=== PATIENT | male | born 1960 | race African-American/Black ===

== ENCOUNTER 2020-04-13 13:15 | Emergency (ER) | payer MEDICARE, OTHER ==
[~2020-04-13] VITALS: Ht 175.3 cm; Wt 72.6 kg
[~2020-04-13 13:15] MED LIST: CELEBREX200 MG ORAL; IBUPROFEN600 MG ORAL; NORCO 5-325 TA1 EACH ORAL; methotrexate
[2020-04-13 13:29] VITALS: BP 124/81
--- NOTE | 2020-04-13 13:29 | NUR ---
ED Nurse Note: Pt from home and walked in due to laceration 1-2cm on his forehead. Pt slipped and fell in a bathroom and hit his forehead on the sink. Pt states wound was bleeding and he came in with a band aid cover. AAO x4, ambulatory with non labored breathing.
[2020-04-13] MEDS ORDERED: Bacitracin Oint UD TOPIC ONE (14:00)
[2020-04-13] MEDS ORDERED: Tetanus/Diptheria/Pertussis IM ONE (14:00)
--- NOTE | 2020-04-13 14:10 | Emergency Room Report ---
History of Present Illness General Chief Complaint: Laceration Source: Patient Present Illness HPI 60-year-old male presents to the emergency department complaining of laceration to the forehead which he sustained after slip and fall in the bathroom. Patient reports he slipped on some water that was on the ground. He reports he hit his head. He denies loss of consciousness. He denies midline neck or back pain. He does state that he takes aspirin daily. He denies any other blood thinning medications that he is aware of. He is not sure when his last tetanus vaccine was. He reports he has a slight 2 out of 10 severity headache in the frontal area. He denies visual changes, dizziness, nausea, vomiting, motor weakness or difficulty with speech/swallowing. Allergies: Coded Allergies: NO KNOWN ALLERGIES (Unverified Allergy, Unknown, 07/29/15) COVID-19 Screening Contact w/high risk pt: No Experienced COVID-19 symptoms?: No COVID-19 Testing performed PROCESSOR GRAIN: No Patient History Past Medical History: see triage record Past Surgical History: none Pertinent Family History: none Reviewed Nursing Documentation: PMH: Agreed; PSxH: Agreed Nursing Documentation-PMH Past Medical History: No History, Except For Review of Systems All Other Systems: negative except mentioned in HPI Physical Exam Vital Signs Date Time Temp Pulse Resp B/P (MAP) Pulse Ox O2 Delivery O2 Flow Rate FiO2 04/13/20 13:20 99.1 80 17 124/81 (95) 98 Room Air Sp02 EP Interpretation: reviewed, normal General Appearance: no apparent distress, alert, GCS 15, non-toxic Head: normocephalic, other - 1.5 stellate forehead laceration. Eyes: bilateral eye normal inspection, bilateral eye PERRL, bilateral eye EOMI ENT: hearing grossly normal, normal voice Neck: full range of motion, no bony tend Respiratory: lungs clear, normal breath sounds, speaking full sentences Cardiovascular #1: regular rate, rhythm Gastrointestinal: non tender, soft, other - Negative bruises. Rectal: deferred Genitourinary: normal inspection Musculoskeletal: back normal, normal range of motion, gait/station normal, non- tender Neurologic: alert, motor strength/tone normal, oriented x3, sensory intact, responsive, speech normal, normal gait, grossly normal, no focal defects Psychiatric: judgement/insight normal Skin: laceration - 1.5 stellate forehead laceration Procedures Laceration/Wound Repair Laceration/Wound Repair : Consent: Verbal Wound Location: head Wound's Depth, Shape: irregular Wound Length (cm): 1 Wound Explored: clean Irrigated w/ Saline (ccs): 500 Anesthesia: Lidocaine w/ Epi Volume Anesthetic (ccs): 3 Wound Repaired With: sutures Suture Size/Type: 6:0 Number of Sutures: 10 Layer Closure?: No Sterile Dressing Applied?: Yes Sling Applied?: No Patient Tolerated: Well Complications: None Medical Decision Making PA Attestation Dr. Fields is my supervising Physician whom patient management has been discussed with. Diagnostic Impression: Primary Impression: Laceration Additional Impression: Head injury, acute, without loss of consciousness Qualified Codes: S09.90XA - Unspecified injury of head, initial encounter ER Course 60-year-old male presents to the emergency department complaining of laceration to the forehead which he sustained after slip and fall in the bathroom. Patient reports he slipped on some water that was on the ground. He reports he hit his head. He denies loss of consciousness. He denies midline neck or back pain. He does state that he takes aspirin daily. He denies any other blood thinning medications that he is aware of. He is not sure when his last tetanus vaccine was. He reports he has a slight 2 out of 10 severity headache in the frontal area. He denies visual changes, dizziness, nausea, vomiting, motor weakness or difficulty with speech/swallowing. Ddx considered but are not limited to Fracture, dislocation, contusion, concussion Sprain/Strain/Spasm, hematoma, ICH, subdural hematoma, laceration just to name a few Vital signs: are WNL, pt. is afebrile H&PE are most consistent with 1.5cm stellate Forehead laceration in a elderly pt. on mild blood thinning medication. No evidence of focal neurological deficit , no loss of consciousness. High risk indicates Head CT. ORDERS: -CT Head no Contrast: WNL ED INTERVENTIONS: -Tylenol PO - Tdap Vaccination -- Laceration was repaired using 10 6.0 ethilon interrupted sutures. PT. had normal Head CT. D/w pt.Ttylenol only for pain. PT. is given very strict close outpatient follow up and instructed to return to the ED with any changes in his symptoms other than improvement. Pt. verbalized his understanding and agreement with d/c plan. PT. is also here in the ED and observation was discussed with her for and worsening of his symptoms as states DISCHARGE: At this time pt. is stable for d/c to home. Will provide printed patient care instructions, and any necessary prescriptions. Care plan and follow up instructions have been discussed with the patient prior to discharge. CT/MRI/US Diagnostic Results CT/MRI/US Diagnostic Results : Imaging Test Ordered: CT Head no Contrast: Impression " "--- Per official radiology report- Please see report for specific details. Last Vital Signs Date Time Temp Pulse Resp B/P (MAP) Pulse Ox O2 Delivery O2 Flow Rate FiO2 04/13/20 13:29 99.1 80 17 124/81 98 Room Air Disposition: HOME, SELF-CARE Condition: Stable Scripts Acetaminophen* (TYLENOL EXTRA STRENGTH*) 500 Mg Tablet 500 MG ORAL Q6H, #30 TAB 0 Refills Prov: Grace Drummond 04/13/20 Bacitracin (Bacitracin) 28.4 Gm Oint...g. 1 APPLIC TOPIC THREE TIMES A DAY, #28 GM Prov: Grace Drummond 04/13/20 Referrals: RAFAEL MCKINLEY MD (PCP) Ivana Neumann Comp. [facility] + [facility] Patient Instructions: Laceration Care, Adult Additional Instructions: Take medications as directed. Sutures are to be removed in 5 days Follow up with a Primary Care Provider in 3-5 days, even if your symptoms have resolved. --Please review list of primary care clinics, if you do not already have a primary care provider Return sooner to ED if new symptoms occur, or current symptoms become worse. - Please note that this Emergency Department Report was dictated using [employer] expert technology software, occasionally this can lead to erroneous entry secondary to interpretation by the dictation equipment. Grace Drummond Apr 13, 2020 14:10
[2020-04-13] MEDS ORDERED: Lidocaine 2% 20mg/ml/EPI 0.01mg/ml 20ml INJ ONE (14:15)
--- NOTE | 2020-04-13 14:34 | Diagnostic Imaging Report ---
EXAM: CT Head Without Intravenous Contrast CLINICAL HISTORY: PAIN TECHNIQUE: Axial computed tomography images of the head/brain without intravenous contrast. CTDI is 53.4 mGy and DLP is 1072.2 mGy-cm. One or more of the following dose reduction techniques were used: automated exposure control, adjustment of the mA and/or kV according to patient size, use of iterative reconstruction technique. COMPARISON: 07/29/2015 FINDINGS: Brain: No acute intracranial hemorrhage, large hypodensity, or significant mass effect. Nonspecific areas of hypoattenuation in the periventricular white matter likely represent the sequela of chronic small vessel ischemic disease. Ventricles: Ventricular and sulcal prominence commensurate with the patient's age. Bones/joints: No acute abnormality. Soft tissues: No significant abnormality. Sinuses: No significant abnormality. Mastoid air cells: No significant abnormality. IMPRESSION: No acute intracranial abnormality.
[2020-04-13] MEDS ORDERED: BACITRACIN15 GM TOPIC (15:09)
[2020-04-13] MEDS ORDERED: TYLENOL EXTRA500 MG ORAL (15:09)
--- NOTE | 2020-04-13 15:10 | NUR ---
ED Nurse Note: Cleansed dried blood on pt's face with saline and patted dry.
[2020-04-13 15:15] VITALS: BP 135/70
--- NOTE | 2020-04-13 15:15 | NUR ---
ER DISCHARGE NOTE: Patient is cleared to be discharged per PA, pt is aox4, on room air, with stable vital signs. pt was given dc and prescription instructions, pt was able to verbalize understanding, pt id band removed. pt is able to ambulate with steady gait. pt took all belongings.
== END 2020-04-13 15:15 | disposition home or self-care (01) ==
LOC: EMR 13:46
DX: S01.81XA Laceration without foreign body of other part of head, initial encounter (principal); S09.90XA Unspecified injury of head, initial encounter; Z23 Encounter for immunization; W01.0XXA Fall on same level from slipping, tripping and stumbling without subsequent striking against object, initial encounter; Y92.9 Unspecified place or not applicable; Z79.82 Long term (current) use of aspirin
CPT/HCPCS: 70450; 90471; 90715; 99284